=== PATIENT | male | born 1970 | race Caucasian/White ===

== ENCOUNTER 2017-07-14 05:58 | Day surgery (SDC) | payer MEDICARE, OTHER ==
[~2017-07-14] VITALS: Ht 193 cm; Wt 99.3 kg
--- NOTE | ~2017-07-14 | EGD ---
EGD REPORT [facility] [address] [place] [address] NAME: RAFITA SIMS : [birth year] STATUS : REG [facility]#: [id number] AGE: 46 ADM/REG DATE : 07/14/17 MR#: [id number] REPORT SERV DATE: 07/14/17 DICTATED BY: MAGNOLIA MYLES DATE: 07/14/17 REPORT STATUS : Draft TRANSCRIBED BY: [employer] DATE: 07/14/17 Endoscopy Center Patient Name: Rafita Sims Date of : 1970 Attending MD: MAGNOLIA MYLES MD Procedure Date No Time: 07/14/2017 Procedure: Upper GI endoscopy Indications: Diarrhea, Nausea with vomiting Referring MD: CARON GRIGGS Medicines: as per anesthesia Complications: No immediate complications. Procedure: Pre-Anesthesia Assessment: - ASA Grade Assessment: III - A patient with severe systemic disease. After obtaining informed consent, the endoscope was passed under direct vision. Throughout the procedure, the patient's blood pressure, pulse, and oxygen saturations were monitored continuously. The GIF H190 [id number] was introduced through the mouth, and advanced to the third part of duodenum. The upper GI endoscopy was accomplished without difficulty. The patient tolerated the procedure. Findings: The examined esophagus was normal. The entire examined stomach was normal. The cardia and gastric fundus were normal on retroflexion. The examined duodenum was normal. Biopsies were taken with a cold forceps for histology. Impression: - Normal esophagus. - Normal stomach. - Normal examined duodenum. Biopsied. Recommendation: - Await pathology results. Procedure Code(s): --- Professional --- 41330, Esophagogastroduodenoscopy, flexible, transoral; with biopsy, single or multiple Diagnosis Code(s): --- Professional --- R19.7, Diarrhea, unspecified R11.2, Nausea with vomiting, unspecified EGD REPORT [facility] [address] [place]. [address] NAME: RAFITA SIMS : [birth year] STATUS : REG [facility] PAT#: [id number] AGE: 46 ADM/REG DATE : 07/14/17 MR#: [id number] REPORT SERV DATE: 07/14/17 DICTATED BY: MAGNOLIA MYLES. DATE: 07/14/17 REPORT STATUS : Draft TRANSCRIBED BY: [employer] DATE: 07/14/17 CPT copyright 2013 [employer]. All rights reserved. The codes documented in this report are preliminary and upon entry level manager review may be revised to meet current compliance requirements. MAGNOLIA MYLES MD 07/14/2017 7:25 AM This report has been signed electronically. Number of Addenda: 0 Note Initiated On: 07/14/2017 7:06 AM Scope Withdrawal Time 0 hours 0 minutes 0 seconds [address] [place] [address]
--- NOTE | ~2017-07-14 | EGD ---
EGD REPORT [facility] [address] [place] [address] NAME: RAFITA SIMS : [birth year] STATUS : REG [facility] PAT#: [id number] AGE: 46 ADM/REG DATE : 07/14/17 MR#: [id number] REPORT SERV DATE: 07/14/17 DICTATED BY: MAGNOLIA MYLSE DATE: 07/14/17 REPORT STATUS : Draft TRANSCRIBED BY: [employer] [facility] DATE: 07/14/17 Endoscopy Center Patient Name: Rafita Sims Date of : 1970 Attending MD: MAGNOLIA MYLES MD Procedure Date No Time: 07/14/2017 Procedure: Colonoscopy Indications: Abdominal pain in the left lower quadrant, Clinically significant diarrhea of unexplained origin Referring MD: CARON GRIGGS Medicines: as per anesthesia Complications: No immediate complications. Procedure: Pre-Anesthesia Assessment: - ASA Grade Assessment: III - A patient with severe systemic disease. After I obtained informed consent, the scope was passed under direct vision. Throughout the procedure, the patient's blood pressure, pulse, and oxygen saturations were monitored continuously. The PCF [id number] was introduced through the anus and advanced to the cecum, identified by appendiceal orifice and ileocecal valve. The colonoscopy was performed without difficulty. The patient tolerated the procedure. The quality of the bowel preparation was adequate to identify polyps. Findings: The perianal and digital rectal examinations were normal. A pedunculated polyp was found in the transverse colon. The polyp was 15 mm in size. The polyp was removed with a hot snare. Resection and retrieval were complete. A few small-mouthed diverticula were found in the transverse colon. Internal hemorrhoids were found during endoscopy and were mild. Four biopsies were obtained in the rectum and in the ascending colon with cold forceps for histology. Impression: - One 15 mm polyp in the transverse colon. Resected and retrieved. - Diverticulosis in the transverse colon. - Internal hemorrhoids. - Four biopsies were obtained in the rectum and in the ascending colon. Recommendation: - Await pathology results. - Repeat colonoscopy for surveillance based on pathology results. EGD REPORT [address] [address] NAME: RAFITA SIMS : [birth year] STATUS : REG [facility] PAT#: [id number] AGE: 46 ADM/REG DATE : 07/14/17 MR#: [id number] REPORT SERV DATE: 07/14/17 DICTATED BY: MAGNOLIA MYLES. DATE: 07/14/17 REPORT STATUS : Draft TRANSCRIBED BY: [employer] DATE: 07/14/17 Procedure Code(s): --- Professional --- 27752, Colonoscopy, flexible, proximal to splenic flexure; with removal of tumor(s), polyp(s), or other lesion(s) by snare technique 12437, 59, Colonoscopy, flexible, proximal to splenic flexure; with biopsy, single or multiple Diagnosis Code(s): --- Professional --- D12.3, Benign neoplasm of transverse colon K64.8, Other hemorrhoids K57.30, Diverticulosis of large intestine without perforation or abscess without bleeding R10.32, Left lower quadrant pain R19.7, Diarrhea, unspecified CPT copyright 2013 [employer]. All rights reserved. The codes documented in this report are preliminary and upon pillowcase cutter review may be revised to meet current compliance requirements. MAGNOLIA MYLES MD 07/14/2017 7:57 AM This report has been signed electronically. Number of Addenda: 0 Note Initiated On: 07/14/2017 7:05 AM Scope Withdrawal Time 0 hours 7 minutes 32 seconds [address] [address]
[~2017-07-14 05:58] MED LIST: DEPAKOT500 PO; DEPAKOTE 125 M125 MG PO; LIPITOR40 PO; PRILO PO; QUESLITE PO; TEG200 PO; X5 PO; ZESTORETIC PO
== END 2017-07-14 23:59 | disposition home health service (06) ==
LOC: DMU 05:58
PROVIDERS: Internal Medicine Gastroenterology
PROC: 0DB98ZX Excision of Duodenum, Via Natural or Artificial Opening Endoscopic, Diagnostic (ICD-10-PCS; principal; 2017-07-14 07:00)
PROC: 0DBL8ZZ Excision of Transverse Colon, Via Natural or Artificial Opening Endoscopic (ICD-10-PCS; 2017-07-14 07:00)
PROC: 0DBK8ZX Excision of Ascending Colon, Via Natural or Artificial Opening Endoscopic, Diagnostic (ICD-10-PCS; 2017-07-14 07:00)
DX: D12.3 Benign neoplasm of transverse colon (principal); K57.30 Diverticulosis of large intestine without perforation or abscess without bleeding; K64.8 Other hemorrhoids; I10 Essential (primary) hypertension; E78.00 Pure hypercholesterolemia, unspecified; R56.9 Unspecified convulsions; K21.9 Gastro-esophageal reflux disease without esophagitis; Z88.8 Allergy status to other drugs, medicaments and biological substances; Z79.899 Other long term (current) drug therapy; Z87.891 Personal history of nicotine dependence; Z98.890 Other specified postprocedural states
CPT/HCPCS: 88305